=== PATIENT | male | born 1940 | race Two or more races ===

== ENCOUNTER 2017-04-08 16:10 | Emergency (ER) | payer OTHER ==
[2017-04-08 17:28] VITALS: RESP 18
--- NOTE | 2017-04-08 18:59 | EDPHY ---
H & P Time Seen by Provider: 04/08/17 18:06 HPI/ROS: CHIEF COMPLAINT: Fall, left shoulder pain HISTORY OF PRESENT ILLNESS: 76-year-old male presents to the emergency department by private vehicle after he fell 2 weeks ago injuring his left shoulder. The patient has a history of chronic neck and back pain from many years in the [employer]. He is followed at the [facility]. States that he fell 2 weeks ago and some friends were concerned about the ecchymosis that he had to his left arm. He has pain with range of motion. He denies paresthesias or numbness or tingling in his fingers. He is having some mild right hip pain as well. Patient has a history of chronic neck and back pain including pain in his lower extremities. He has neuropathy. He typically ambulates using a cane. REVIEW OF SYSTEMS: Constitutional: No fever, no chills. Eyes: No double or blurry vision. ENT: No sore throat. Respiratory: No cough, no shortness of breath. Cardiac: No chest pain. Gastrointestinal: No abdominal pain, vomiting or diarrhea. Genitourinary: No dysuria. Musculoskeletal: Chronic neck and back pain. Skin: No rashes. Neurological: No headache. Past Medical/Surgical History: Chronic neck and back pain Social History: Single and lives alone Smoking Status: Never smoked Physical Exam: General Appearance: Alert, no distress. No visible signs of trauma to his head. He is mentating normally and answering questions appropriately. Eyes: Pupils equal and round. Extraocular motions are all intact. ENT: Mouth: Mucous membranes moist. Respiratory: No wheezing, rhonchi, or rales, lungs are clear to auscultation. Cardiovascular: Regular rate and rhythm. Gastrointestinal: Abdomen is soft and nontender, no masses, no rebound or guarding, bowel sounds normal. Neurological: Alert and oriented x 3, cranial nerves II through XII grossly intact Skin: Warm and dry, no rashes. Musculoskeletal: Nontender to palpate along the cervical, thoracic or lumbar spine. Neck is supple. Extremities: Full range of motion and no peripheral edema. He has pain however with full motion of the left shoulder. Straight leg raise causes pain although is negative bilaterally. Psychiatric: Patient is oriented X 3, there is no agitation. Constitutional: Initial Vital Signs Temperature (C) 36.6 C 04/08/17 17:24 Heart Rate 70 04/08/17 17:24 Respiratory Rate 18 04/08/17 17:24 Blood Pressure 166/97 H 04/08/17 17:24 O2 Sat (%) 96 04/08/17 17:24 O2 Delivery Mode Room Air Allergies/Adverse Reactions: No Known Allergies Allergy (Unverified 04/08/17 17:23) Home Medications: Medication Instructions Recorded GABAPENTIN 04/08/17 ZOLPIDEM TARTRATE 04/08/17 traMADol [Ultram 50 mg (*)] 50 mg PO Q8 PRN #10 tab 04/08/17 Medical Decision Making - Diagnostics Imaging Results: Imaging Impressions Cervical Spine X-Ray 04/08/17 17:42 Impression: Extensive cervical spine degenerative changes, limiting sensitivity for detection of fracture. Given this limitation, no fracture or prevertebral soft tissue swelling identified. Comment: If symptoms persists or clinically warranted, noncontrast CT of the cervical spine may be of benefit. Shoulder X-Ray 04/08/17 17:42 Impression: Negative for fracture. Procedures: Patient was placed in a sling and examined post application in good placement with normal [employer]. ED Course/Re-evaluation: 76-year-old male presents to the emergency department with left arm injury. X- rays of the left shoulder reveal no fractures. The patient has degenerative changes noted cervical spine. He has no tenderness with palpation along cervical spine. I do not think additional imaging studies are necessary in the emergency department. He was placed in a sling for comfort. He understands that this can throw his balance off. He was given orthopedic referral. Patient was comfortable with this plan. Differential Diagnosis: Including but not limited to fracture, dislocation, contusion, sprain, neuropathy Departure - Departure Disposition: Home, Routine, Self-Care Clinical Impression: Contusion of left arm Qualifiers: Encounter type: initial encounter Qualified Code(s): S40.022A - Contusion of left upper arm, initial encounter Condition: Good Instructions: Contusion in Adults (ED) Additional Instructions: Ibuprofen 600 mg every 8 hours as needed for pain. Sling for comfort and support. Ultram as needed for severe pain. Follow up with orthopedic surgeon this week to recheck. Return to the emergency department if you develop numbness or tingling in your fingers, weakness in her arm, or if you feel worse in any way. Referrals: Prosper Borja MD [Medical Doctor] - 2-3 days, call for appt. (Orthopedic surgeon on-call) Prescriptions: traMADol [Ultram 50 mg (*)] 50 mg PO Q8 PRN #10 tab PRN Reason: Pain, Moderate
[2017-04-08 19:05] VITALS: BP 164/88; PULSE 68; TEMP 97.5; O2SAT 97
== END 2017-04-08 19:22 | disposition home or self-care (01) ==
DX: S40.012A Contusion of left shoulder, initial encounter (principal); W18.30XA Fall on same level, unspecified, initial encounter
CPT/HCPCS: 72050; 73030; 99284; A4565

== ENCOUNTER 2017-10-24 13:23 | Emergency (ER) | payer OTHER ==
[2017-10-24 13:34] VITALS: BP 173/101; PULSE 77; RESP 16; TEMP 98.6; O2SAT 98
--- NOTE | 2017-10-24 14:12 | EDPHY ---
H & P Stated Complaint: spontaneous bruising above L eye x2 days Time Seen by Provider: 10/24/17 13:37 HPI/ROS: CHIEF COMPLAINT: Periorbital ecchymosis HISTORY OF PRESENT ILLNESS: The patient presents to the ED for evaluation of left periorbital ecchymosis. The patient's symptoms have been present for 2 days. He denies any history of sneezing, cough, Valsalva or trauma. The patient is not anticoagulated. The patient has no complaints of any visual field cuts or blurry vision. He has no complaints of acute headache. He has no additional medical complaints. Past medical history is noteworthy for chronic pain. The patient is on a number outpatient pain medications. REVIEW OF SYSTEMS: A comprehensive 10 point review of systems is otherwise negative aside from elements mentioned in the history of present illness. Source: Patient - Medical/Surgical History Hx Asthma: No Hx Chronic Respiratory Disease: No Hx Diabetes: No Hx Cardiac Disease: No Hx Renal Disease: No Hx Cirrhosis: No Hx Alcoholism: No Hx HIV/AIDS: No Hx Splenectomy or Spleen Trauma: No Other PMH: spinal injuries. retinal tears - Social History Smoking Status: Never smoked - Physical Exam Exam: General Appearance: Alert, no distress Eyes: Pupils equal and round no pallor or injection ENT, Mouth: Mucous membranes moist Respiratory: There are no retractions, lungs are clear to auscultation Cardiovascular: Regular rate and rhythm Gastrointestinal: Abdomen is soft and nontender, no masses, bowel sounds normal Neurological: A&O, normal motor function, normal sensory exam, normal cranial nerves Skin: Small area of periorbital ecchymosis above left eye, no hematoma, no bony tenderness Musculoskeletal: Neck is supple nontender Extremities: symmetrical, full range of motion Constitutional: Initial Vital Signs Temperature (C) 37.0 C 10/24/17 13:29 Heart Rate 77 10/24/17 13:29 Respiratory Rate 16 10/24/17 13:29 Blood Pressure 173/101 H 10/24/17 13:29 O2 Sat (%) 98 10/24/17 13:29 O2 Delivery Mode Room Air Allergies/Adverse Reactions: No Known Allergies Allergy (Unverified 04/08/17 17:23) Home Medications: Medication Instructions Recorded GABAPENTIN 04/08/17 ZOLPIDEM TARTRATE 04/08/17 traMADol [Ultram 50 mg (*)] 50 mg PO Q8 PRN #10 tab 04/08/17 Ibuprofen 10/24/17 morphINE IR 15 mg (*) 10/24/17 oxyCODONE IR 10/24/17 Medical Decision Making ED Course/Re-evaluation: The patient presents to the ED with atraumatic periorbital ecchymosis. There is no evidence of proptosis, visual field cut or other worrisome physical exam finding. The patient will be discharged home with customary aftercare instructions and return precautions. Departure - Departure Disposition: Home, Routine, Self-Care Clinical Impression: Periorbital ecchymosis of left eye Condition: Good Instructions: Ecchymosis (ED) Additional Instructions: 1. Return to the ED for any severe eye pain, vision changes or other concerns. 2. You have a small area of bruising which should improved spontaneously over the next several weeks. 3. Follow up with your regular physician for your ongoing chronic pain needs. Referrals: NONE *PRIMARY CARE P,. [Primary Care Provider] - As per Instructions
== END 2017-10-24 14:31 | disposition home or self-care (01) ==
DX: M79.81 Nontraumatic hematoma of soft tissue (principal)